=== PATIENT | male | born 1970 | race Caucasian/White ===

== ENCOUNTER 2020-04-27 12:54 | Emergency (ER) | payer OTHER ==
--- NOTE | 2020-04-27 15:38 | RAD REPORT ---
EXAM DESCRIPTION: RAD - Femur Right - 04/27/2020 3:07 pm CLINICAL HISTORY: Leg pain FINDINGS: Right hip arthroplasty. Right femoral prosthesis is in place. Sideplate and screws and wir es are noted. Comminuted fracture involves the proximal to mid right femur with displacement of fracture fragments. The femoral sideplate is in 2 pieces. Presumably this is secondary to a fracture of the plate. This s hould be correlated with prior x-ray. Also comparison with the prior x-ray would be helpful to determine if there has been a re- fracture o f the femur or if this is all a chronic finding
--- NOTE | 2020-04-27 15:40 | RAD REPORT ---
EXAM DESCRIPTION: USExtremity Venous Uni Ltd04/27/2020 3:22 pm CLINICAL HISTORY: Right leg pain and swelling. COMPARISON: None. FINDINGS: Right common femoral, superficial femoral, popliteal and right posterior tibial veins are compressible and demonstrate augmentation. Doppler demonstrates good flow. IMPRESSION: No evidence of deep venous thrombosis involving the right lower extremity.
--- NOTE | 2020-04-27 16:00 | EDPHYS ---
Physician Documentation [facility] Name: Romulo Sebastian Age: 50 yrs Sex: Male : 1970 Arrival Date: 04/27/2020 Time: 12:56 Bed 14 Private MD: ED Physician Javier Holly HPI: 04/27 14:44 This 50 yrs old Male presents to ER via Wheelchair with complaints of Leg kb Pain. 14:44 The patient presents with pain, that is acute, swelling. The complaints affect the kb right quadriceps. Context: The problem was sustained at home, resulted from twisting of the extremity, the patient can partially bear weight, the patient is able to ambulate, Problem is a result from a previous injury: Yes. Onset: The symptoms/episode began/occurred 2 month(s) ago. Modifying factors: The symptoms are alleviated by nothing. the symptoms are aggravated by weight bearing. Associated signs and symptoms: Pertinent positives: swelling, Pertinent negatives calf tenderness, fever, nausea, numbness, rash, tingling, vomiting, warmth, weakness. Treatment prior to arrival includes: no previous treatment. Severity of symptoms: At their worst the symptoms were moderate, in the emergency department the symptoms are unchanged. The patient has not experienced similar symptoms in the past. The patient has not recently seen a physician. Pt reports he broke his femur in November, had surgery at that time and started getting around on it. States he twisted it 2 months ago and has had some pain and swelling since then that has gotten worse. Historical: - Allergies: 13:20 GABAPENTIN; ca1 - PMHx: 13:20 Arthritis; Asthma; chronic back and hip pain; ca1 - PSHx: 13:20 right hip; Carpal Tunnel Repair; nerve pain; ca1 - Immunization history:: Adult Immunizations up to date. - Social history:: Smoking status: Patient denies any tobacco usage or history of. ROS: 14:43 Constitutional: Negative for fever, chills, and weight loss, Cardiovascular: Negative kb for chest pain, palpitations, and edema, Respiratory: Negative for shortness of breath, cough, wheezing, and pleuritic chest pain, Abdomen/GI: Negative for abdominal pain, nausea, vomiting, diarrhea, and constipation, Back: Negative for injury and pain, Skin: Negative for injury, rash, and discoloration, Neuro: Negative for headache, weakness, numbness, tingling, and seizure. 14:43 MS/extremity: Positive for pain, swelling, of the right quadriceps. Exam: 14:43 Constitutional: This is a well developed, well nourished patient who is awake, alert, kb and in no acute distress. Head/Face: Normocephalic, atraumatic. Chest/axilla: Normal chest wall appearance and motion. Nontender with no deformity. No lesions are appreciated. Cardiovascular: Regular rate and rhythm with a normal S1 and S2. No gallops, murmurs, or rubs. Normal PMI, no JVD. No pulse deficits. Respiratory: Lungs have equal breath sounds bilaterally, clear to auscultation and percussion. No rales, rhonchi or wheezes noted. No increased work of breathing, no retractions or nasal flaring. Abdomen/GI: Soft, non-tender, with normal bowel sounds. No distension or tympany. No guarding or rebound. No evidence of tenderness throughout. Skin: Warm, dry with normal turgor. Normal color with no rashes, no lesions, and no evidence of cellulitis. Neuro: Awake and alert, GCS 15, oriented to person, place, time, and situation. Cranial nerves II-XII grossly intact. Motor strength 5/5 in all extremities. Sensory grossly intact. Cerebellar exam normal. Normal gait. 14:43 Musculoskeletal/extremity: Extremities: grossly normal except: noted in the right quadriceps: pain, swelling, ROM: intact in all extremities, Circulation is intact in all extremities. Sensation intact. Weight bearing: can bear weight with assistance only. Vital Signs: 13:15 BP 131 / 84; Pulse 90; Resp 15 S; Temp 97.6(TE); Pulse Ox 99% on R/A; Weight 106.59 kg; ca1 Height 5 ft. 9 in. (175.26 cm) (R); 16:20 BP 125 / 79; Pulse 75; Resp 17; Temp 97.8; Pulse Ox 99% ; bp 13:15 Body Mass Index 34.70 (106.59 kg, 175.26 cm) ca1 MDM: 14:13 Patient medically screened. kb 14:44 Data reviewed: vital signs, nurses notes. Data interpreted: Pulse oximetry: on room air kb is 99 %. Interpretation: normal. 14:47 Counseling: I had a detailed discussion with the patient and/or guardian regarding: the kb historical points, exam findings, and any diagnostic results supporting the discharge/admit diagnosis, radiology results, the need for outpatient follow up, a orthopedic surgeon, to return to the emergency department if symptoms worsen or persist or if there are any questions or concerns that arise at home. 04/27 14:29 Order name: Femur Right XRAY; Complete Time: 15:54 kb 04/27 14:29 Order name: US Extremity Venous Unilateral Ltd; Complete Time: 15:54 kb Administered Medications: 16:00 Drug: [place] [address] 10 mg-325 mg 1 tabs Route: PO; bp 16:17 Follow up: Response: Medication administered at discharge. bp Disposition: 19:07 Co-signature as Attending Physician, Javier Holly MD. rn Disposition: 04/27/20 15:59 Discharged to Home. Impression: Pain in right leg - fractured plate. - Condition is Stable. - Discharge Instructions: Musculoskeletal Pain. - Prescriptions for Tylenol- Codeine #3 300-30 mg Oral Tablet - take 1 tablet by ORAL route every 6 hours As needed; 15 tablet. - Medication Reconciliation Form, Thank You Letter, Antibiotic Education, Prescription Opioid Use form. - Follow up: Emergency Department; When: As needed; Reason: Worsening of condition. Follow up: Private Physician; When: 2 - 3 days; Reason: Recheck today's complaints, Continuance of care, Re-evaluation by your physician. Signatures: Dispatcher [employer] EDTX Ligia Hess, PET CARE ASSISTANT-C PET CARE ASSISTANT-Ckb Javier Holly MD MD rn Peltier, Brian, RN RN bp Acob, Cheryl, RN RN ca1 Corrections: (The following items were deleted from the chart) 16:24 15:59 04/27/2020 15:59 Discharged to Home. Impression: Pain in right leg - fractured bp plate. Condition is Stable. Forms are Medication Reconciliation Form, Thank You Letter, Antibiotic Education, Prescription Opioid Use. Follow up: Emergency Department; When: As needed; Reason: Worsening of condition. Follow up: Private Physician; When: 2 - 3 days; Reason: Recheck today's complaints, Continuance of care, Re-evaluation by your physician. kb
--- NOTE | 2020-04-27 16:00 | ER ---
Nurse's Notes [facility] Name: Romulo Sebastian Age: 50 yrs Sex: Male : 1970 Arrival Date: 04/27/2020 Time: 12:56 Bed 14 Private MD: Diagnosis: Pain in right leg-fractured plate Presentation: 04/27 13:15 Chief complaint: Patient states: I broke my R Femur on October, I had surgery and had ca1 this pain at the back of my R knee. Right now, the pain is on my side and front of my R thigh, it feels a little swollen and the pain has gotten worse. And my R arm is tingling when I turn my neck a certain way. Coronavirus screen: Proceed with normal triage. Patient denies a cough. Patient denies shortness of breath or difficulty breathing. Patient denies measured and/or subjective temperature greater than 100.4F prior to today's visit. Patient denies travel on a cruise ship or to a country the [facility] currently lists as an affected area. Patient denies contact with known and/or suspected case of COVID-19. Ebola Screen: Patient negative for fever greater than or equal to 101.5 degrees Fahrenheit, and additional compatible Ebola Virus Disease symptoms Patient denies exposure to infectious person. Patient denies travel to an Ebola-affected area in the 21 days before illness onset. No symptoms or risks identified at this time. Initial Sepsis Screen: Does the patient meet any 2 criteria? No. Patient's initial sepsis screen is negative. Does the patient have a suspected source of infection? No. Patient's initial sepsis screen is negative. Risk Assessment: Do you want to hurt yourself or someone else? Patient reports no desire to harm self or others. Onset of symptoms was April 27, 2020. 13:15 Method Of Arrival: Wheelchair ca1 13:15 Acuity: IVORY 4 ca1 Triage Assessment: 13:30 General: Appears in no apparent distress. uncomfortable, Behavior is calm, cooperative, bp appropriate for age. Pain: Complains of pain in right leg. EENT: No deficits noted. Neuro: No deficits noted. Cardiovascular: No deficits noted. Respiratory: No deficits noted. GI: No signs and/or symptoms were reported involving the gastrointestinal system. : No signs and/or symptoms were reported regarding the genitourinary system. Derm: No deficits noted. Musculoskeletal: No deficits noted. Historical: - Allergies: 13:20 GABAPENTIN; ca1 - PMHx: 13:20 Arthritis; Asthma; chronic back and hip pain; ca1 - PSHx: 13:20 right hip; Carpal Tunnel Repair; nerve pain; ca1 - Immunization history:: Adult Immunizations up to date. - Social history:: Smoking status: Patient denies any tobacco usage or history of. Screenin:16 Abuse screen: Denies threats or abuse. Denies injuries from another. Nutritional bp screening: No deficits noted. Tuberculosis screening: No symptoms or risk factors identified. Fall Risk None identified. Assessment: 13:30 General: SEE TRIAGE NOTE. bp 15:00 Reassessment: U/S AT B/S. bp 16:17 Reassessment: PT D/C HOME AMBULATORY WITH FAMILY, DX WITH PAIN IN R LEG, FRACTURED bp PLATE. Vital Signs: 13:15 BP 131 / 84; Pulse 90; Resp 15 S; Temp 97.6(TE); Pulse Ox 99% on R/A; Weight 106.59 kg; ca1 Height 5 ft. 9 in. (175.26 cm) (R); 16:20 BP 125 / 79; Pulse 75; Resp 17; Temp 97.8; Pulse Ox 99% ; bp 13:15 Body Mass Index 34.70 (106.59 kg, 175.26 cm) ca1 ED Course: 12:56 Patient arrived in ED. ag5 13:19 Triage completed. ca1 13:20 Arm band placed on right wrist. ca1 14:11 Ligia Hess FNP-C is PHCP. kb 14:11 Javier Holly MD is Attending Physician. kb 14:12 Hill Novoa, CAT is Primary Nurse. bp 14:16 Patient has correct armband on for positive identification. Bed in low position. Call bp light in reach. Side rails up X2. 15:07 Femur Right XRAY In Process Unspecified. EDMS 15:23 US Extremity Venous Unilateral Ltd In Process Unspecified. EDMS 16:20 No provider procedures requiring assistance completed. Patient did not have IV access bp during this emergency room visit. Administered Medications: 16:00 Drug: [place] 10 mg-325 mg 1 tabs Route: PO; bp 16:17 Follow up: Response: Medication administered at discharge. bp Outcome: 15:59 Discharge ordered by . danny 16:22 Discharged to home ambulatory, with family. bp 16:22 Condition: stable 16:22 Discharge instructions given to patient, Instructed on discharge instructions, follow up and referral plans. medication usage, Demonstrated understanding of instructions, follow-up care, medications, Prescriptions given X 1. 16:24 Patient left the ED. bp Signatures: Dispatcher [employer] EDCO Ligia Hess, Hill Cuellar RN RN Izabella Rivers RN RN [facility] Fariha Smith 5
[2020-04-27] MEDS ORDERED: HYDROCODONE/APAP 10/325 TAB ONE (16:15)
[2020-04-27 16:29] VITALS: O2SAT 99
[2020-04-27 16:30] VITALS: BP 125/79; TEMP 97.8
== END 2020-04-27 16:24 | disposition home or self-care (01) ==
LOC: ER 12:54
DX: M79.651 Pain in right thigh (principal); Z88.8 Allergy status to other drugs, medicaments and biological substances
CPT/HCPCS: 93971; 99283

== ENCOUNTER 2023-08-11 13:09 | Emergency (ER) | payer OTHER ==
--- OUTSIDE RECORDS SUMMARY | 2023-08-11 13:11 | XMS REPORT | Continuity of Care Document ---
:1970 Author Organization [facility] t Address [address] [place] [address] [place] [id number] Care Team Providers Name Role Phone Remedios RAMIRE[facility] Phys[facility] Doctor Unassigned, [place] Attending Clinician Unavailable Jason Coreas DO Attending Clinician Pio Zelaya MD Attending Clinician Carlitos Goodwin MD Attending Clinician LISA WOO Attending Clinician Unavailable CONCEPCION FOWLER Admitting Clinician Unavailable Payers Payer Name Policy Type Policy Number Effective Date Expiration Date S ource Problems Condition Condition Condition Status Onset Resolution Last Treating Co mments Source Name Details Category Date Date Treatment Clinician Date Obesity Obesity Disease Active 2018-11 Univers (BMI (BMI 2-15 ity of 30-39.9) 30-39.9) 00:00: [place] [address] Medical Branch Femur Femur Disease Active 2018-11 Univers fracture, fracture, 2-14 ity of right right 00:00: [place] [address] Medical Branch Scalp Scalp Disease Active 2018-11 Univers hematoma hematoma 2-14 ity of 00:00: [place] [address] Medical Branch Allergies, Adverse Reactions, Alerts Allergy Allergy Status Severity Reaction(s) Onset Inactive Treating Comm ents Source Name Type Date Date Clinician Gabapent Propensi Active Other - See 2018-11 Blurred Univers in ty to comments 2-14 vision ity of adverse 00:00: [place] [facility] 00 Medical s Branch GABAPENT DRUG Active Other-Cmnt 2018-11 Univ ers IN INGREDI 2-14 ity of 00:00: [place] 00 Medical Branch Social History Social Habit Start Date Stop Date Quantity Comments Source History SDOK 2019-10-19 2019-10-19 5 University o [facility] Financial 00:00:00 00:00:00 Medical Branch History SDOH Food 2019-10-19 2019-10-19 1 Univers [facility] [place] Worry 00:00:00 00:00:00 Medical Branch History [facility] Food 2019-10-19 2019-10-19 1 Univers [facility] Scarcity 00:00:00 00:00:00 Medical Branch History SDOK 2019-10-19 2019-10-19 2 University o [facility] Transport Med 00:00:00 00:00:00 Medical Bra nch History [facility] 2019-10-19 2019-10-19 2 [facility] Transport Non-Med 00:00:00 00:00:00 Medical Branch Tobacco use and 2019-10-18 2019-10-18 Never used [facility] exposure 00:00:00 00:00:00 Medical Branch Education 2019-10-18 2019-10-18 15 [facility] 00:00:00 00:00:00 Medical Branch Sex Ass[birth year] [facility] 00:00:00 00:00:00 Medical Branch Smoking Status Start Date Stop Date Source Never smoker [facility] Medical Branch Medications Ordered Filled Start Stop Current Ordering Indication Dosage Frequency Signature Comments Components Source Medication Medication Date Date Medication? Clinician (SIG) Name Name No known No Univers medications - ity of 09:08: [place] 42 Medical Branch aspirin 2020-0 2020- No [id number] 325mg Take 1 U nivers E.C. 325 mg 1-10 -25 tablet by it y of EC tablet 00:00: 05:59 mouth [place] 00 :00 daily for Medical 14 days. Branch aspirin 2020-0 2020- No [id number] 325mg Take 1 U nivers E.C. 325 mg 1-10 -25 tablet by it y of EC tablet 00:00: 05:59 mouth [place] 00 :00 daily for Medical 14 days. Branch aspirin 2019-0 2020- No [id number] 325mg Take 1 U nivers E.C. 325 mg 1-10 -25 tablet by it y of EC tablet 00:00: 05:59 mouth [place] 00 :00 daily for Medical 14 days. Branch aspirin 2019- No [id number] 325mg Take 1 U nivers E.C. 325 mg 11-14 tablet by it y of EC tablet 00:00: 05:59 mouth [place] 00 :00 daily for Medical 14 days. Branch No known No Univers medications [facility] No known No Univers medications [facility] Vital Signs Vital Name Observation Time Observation Value Comments Source Body height 2019-11-25 15:08:00 175.3 cm [facility] Body weight 2019-11-25 15:08:00 112.991 kg [facility] BMI 2019-11-25 15:08:00 36.79 kg/m2 [facility] Procedures Procedure Date / Time Performing Clinician Source Performed AUTHORIZATION FOR 2022-04-11 05:01:00 Doctor Janie, No [facility] RELEASE OF PHI Name [facility] XR FEMUR 2 VW RIGHT 2019-11-25 15:18:15 Carlitos Goodwin [facility] Encounters Start End Encounter Admission Attending Care Care Encounter Source Date/Time Date/Time Type Type Clinicians Facility Department ID 2022-04-11 2022-04-11 Orders Doctor SANDRA [id number] Univers 00:00:00 00:00:00 Only Unassigned, PHILIPPE [id number] ity of [place] [facility] [id number] Cheng as [phone] [facility] 009 Branch 2021-01-20 2021-01-20 Patient JOHANN Coreas [id number] Univers 00:00:00 00:00:00 Outreach Jason PRIMARY [id number] i ty of [facility] [id number] [id number] Me dical 388 Branch 2020-05-28 2020-05-28 Telephone ZelayaJOHANN alcala [id number] Univers 00:00:00 00:00:00 Pio A HEALTH [id number] [id number] [place] [facility] [id number] [facility] Primary & 198 Branch Specialty Care 2019-11-25 2019-11-25 Hospital Zelaya, [facility] [id number] Univers 08:45:00 23:59:00 Encounter Pio Soni HEALTH [id number] [facility] [id number] [facility] [id number] [facility] Primary & 809 Branch Specialty Care 2019-11-25 2019-11-25 Office [facility] [id number] Univers 09:04:15 09:19:15 Visit Pio Soni HEALTH [id number] it y [place] [id number] [facility] [id number] [facility] Primary & 198 Branch Specialty Care 2019-11-23 2019-11-23 Abstract Christa [facility] [id number] Univers 00:00:00 00:00:00 Maxim HEALTH [id number] it y [facility] [place] [id number] [facility] [id number] [facility] Primary & 198 Branch Specialty Care 2019-10-18 2019-10-18 Emergency X WOO [facility] ERT [id number] Univers 14:10:48 16:26:00 LISA [facility] Results Test Test Test Results Result Source Description Time Comments Comments XR FEMUR 2 VW 2019-11- Stable hip arthroplasty [facility] change with healing [facility] 15:42:18 periprosthetic proximal B ranch femoralfracture. EXAM: XR FEMUR 2 VW RIGHT HISTORY: fx COMPARISON: October 2019 FINDINGS: Imaging of the right femur demonstrates interval skin staple removal at thelevel of the right hip arthroplasty changes with residual soft tissueswelling. Tension cable and plate fixation hardware secure a healingperiprosthetic fracture at the femoral prosthesis with unchanged alignmentand mild progressive partially bridging callus. Heterotopic ossificationremains along the right hip joint capsule. [facility], Radiant Results Inft User - 11/25/2019 9:43 AM CSTEXAM:XR FEMUR 2 VW RIGHTHISTORY:fx COMPARISON:October 2019FINDINGS: Imaging of the right femur demonstrates interval skin staple removal at thelevel of the right hip arthroplasty changes with residual soft tissueswelling. Tension cable and plate fixation hardware secure a healingperiprosthetic fracture at the femoral prosthesis with unchanged alignmentand mild progressive partially bridging callus. Heterotopic ossificationremains along the right hip joint capsule.IMPRESSIONStable hip arthroplasty change with healing periprosthetic proximal femoralfracture.
--- NOTE | 2023-08-11 13:50 | EDPHYS ---
Physician Documentation [facility] Name: Romulo Sebastian Age: 53 yrs Sex: Male : 1970 Arrival Date: 08/11/2023 Time: 13:09 Bed 7 Private MD: ED Physician Chinedu France HPI: 08/11 14:11 This 53 yrs old Black Male presents to ER via Ambulatory with complaints of Arm Pain, rt Neck Pain, <24hrs Old. 14:11 Patient presents to the ED with about 1 month of a left-sided neck pain with tingling rt sensation down his arm. Patient does report a prior injury to the area. The patient states that the symptoms have persisted, he only has modest relief with methocarbamol, ibuprofen, Tylenol. He has not yet been able to get in with his primary care for further work-up of this. Denies other acute complaints including trauma. Symptoms are mild in severity, aching in nature, no other aggravating or elevating factors.. Historical: - Allergies: 13:19 GABAPENTIN; mb9 - PMHx: 13:19 Arthritis; Asthma; chronic back and hip pain; mb9 - Immunization history:: Adult Immunizations up to date. - Family history:: not pertinent. ROS: 14:11 Constitutional: Negative for fever, chills, and weight loss, Cardiovascular: Negative rt for chest pain, palpitations, and edema, Respiratory: Negative for shortness of breath, cough, wheezing, and pleuritic chest pain, Abdomen/GI: Negative for abdominal pain, nausea, vomiting, diarrhea, and constipation, Skin: Negative for injury, rash, and discoloration, Psych: Negative for depression, anxiety, suicide ideation, homicidal ideation, and hallucinations, 14:11 Neck: Positive for rash, Negative for injury or acute deformity, 14:11 MS/extremity: Positive for pain, paresthesias, Exam: 14:11 Constitutional: This is a well developed, well nourished patient who is awake, alert, rt and in no acute distress. Chest/axilla: Normal chest wall appearance and motion. Nontender with no deformity. No lesions are appreciated. Cardiovascular: Regular rate and rhythm with a normal S1 and S2. No gallops, murmurs, or rubs. Normal PMI, no JVD. No pulse deficits. Respiratory: Lungs have equal breath sounds bilaterally, clear to auscultation and percussion. No rales, rhonchi or wheezes noted. No increased work of breathing, no retractions or nasal flaring. Abdomen/GI: Soft, non-tender, with normal bowel sounds. No distension or tympany. No guarding or rebound. No evidence of tenderness throughout. Skin: Warm, dry with normal turgor. Normal color with no rashes, no lesions, and no evidence of cellulitis. 14:11 Neck: Tenderness to left superior trapezius muscle, no midline tenderness, no step-offs, 14:11 Neuro: Good bellhop captain strength on bilateral upper extremities, no sensory deficits., Vital Signs: 13:23 BP 147 / 103; Pulse 78; Resp 18; Temp 98.3; Pulse Ox 97% on R/A; Weight 99.79 kg; hb Height 5 ft. 9 in. ; Pain 9/10; 13:49 BP 136 / 103; Pulse 74; Resp 18; Pulse Ox 100% on R/A; mb9 13:23 Body Mass Index 32.49 (99.79 kg, 175.26 cm) hb 13:23 Pain Scale: Adult hb MDM: 13:25 Patient medically screened. rt 14:11 Differential diagnosis: Radicular pain, muscle spasm, disc disease. Data reviewed: rt vital signs, nurses notes. I considered the following discharge prescriptions or medication management in the emergency department Medications were administered in the Emergency Department. See MAR. Test considered but Not performed: CT: No trauma, no focal neurodeficits, MRI, CT scan not indicated emergently. Pain has been present for over 1 month.. Counseling: I had a detailed discussion with the patient and/or guardian regarding the historical points, exam findings, and any diagnostic results supporting the discharge/admit diagnosis, the need for outpatient follow up, to return to the emergency department if symptoms worsen or persist or if there are any questions or concerns that arise at home. Administered Medications: 13:47 Drug: Ketorolac IM 15 mg IM once Route: IM; Site: left deltoid; mb9 13:59 Follow up: Response: No adverse reaction mb9 Disposition Summary: 08/11/23 13:50 Discharge Ordered Notes: Location: Home rt Problem: an ongoing problem rt Symptoms: are unchanged rt Condition: Stable rt Diagnosis - Neck pain with radiculopathy rt Followup: rt - With: Private Physician - When: 2 - 3 days - Reason: Discharge Instructions: - Discharge Summary Sheet rt - Cervical Radiculopathy rt Forms: - Medication Reconciliation Form rt - Thank You Letter rt - Antibiotic Education rt - Prescription Opioid Use rt - Patient Portal Instructions rt - Leadership Thank You Letter rt Prescriptions: - Lidoderm 5 % Topical adhesive patch, medicated - apply 1 patch TOPICAL route once leave on most painful area for up to 12 hrs; rt 10 patch; Refills: 0, Product Selection Permitted - acetaminophen-codeine 300-30 mg Oral tablet - take 1 tablet ORAL route every 6 hours As needed for pain; 18 tablet; Refills: rt 0, Product Selection Permitted - Cyclobenzaprine 10 mg Oral tablet - take 1 tablet ORAL route every 8 hours As needed; 15 tablet; Refills: 0, rt Product Selection Permitted - Prednisone 20 mg Oral Tablet - take 2 tablets ORAL route once daily for 5 days; 10 tablet; Refills: 0, Product rt Selection Permitted Signatures: Vani Up RN RN mb9 Chinedu France MD MD rt
--- NOTE | 2023-08-11 13:50 | ER ---
Nurse's Notes [facility] Name: Romulo Sebastian Age: 53 yrs Sex: Male : 1970 Arrival Date: 08/11/2023 Time: 13:09 Bed 7 Private MD: Diagnosis: Neck pain with radiculopathy Presentation: 08/11 13:22 Initial Sepsis Screen: Does the patient meet any 2 criteria?. mb9 13:23 Chief complaint: Left sided neck pain that radiates to left arm and hand x 3 weeks. hb Denies new injury. Pain unrelieved by Tylenol, Motrin, and Robaxin. Coronavirus screen: At this time, the client does not indicate any symptoms associated with coronavirus-19. Ebola Screen: No symptoms or risks identified at this time. Initial Sepsis Screen: Does the patient meet any 2 criteria?. 13:23 Method Of Arrival: Ambulatory hb 13:26 Risk Assessment: Do you want to hurt yourself or someone else? Patient reports no hb desire to harm self or others. Onset of symptoms was July 2023. 13:26 Acuity: IVORY 4 hb Historical: - Allergies: 13:19 GABAPENTIN; mb9 - PMHx: 13:19 Arthritis; Asthma; chronic back and hip pain; mb9 - Immunization history:: Adult Immunizations up to date. - Family history:: not pertinent. Screenin:19 [facility] ED Fall Risk Assessment (Adult) History of falling in the last 3 months, mb9 including since admission No falls in past 3 months (0 pts) Confusion or Disorientation No (0 pts) Intoxicated or Sedated No (0 pts) Impaired Gait No (0 pts) Mobility Assist Device Used No (0 pt) Altered Elimination No (0 pt) Score/Fall Risk Level 0 - 2 = Low Risk Oriented to surroundings, Maintained a safe environment, Educated pt \T\ family on fall prevention, incl call for assistance when getting out of bed. Abuse screen: Denies threats or abuse. Nutritional screening: No deficits noted. Tuberculosis screening: No symptoms or risk factors identified. Assessment: 13:48 General: Appears uncomfortable, Behavior is calm, cooperative. Pain: Complains of pain mb9 in neck Pain radiates to left lateral neck Pain currently is 10 out of 10 on a pain scale. Quality of pain is described as throbbing, Pain began gradually, Is intermittent, chronic, Aggravated by increased activity, repositioning. Neuro: Keller Agitation-Sedation Scale (RASS): 0 - Alert and Calm Level of Consciousness is awake, alert, obeys commands, Oriented to person, place, time, situation, Appropriate for age. Cardiovascular: Patient's skin is warm and dry. Respiratory: Airway is patent Respiratory effort is even, unlabored, Respiratory pattern is regular, symmetrical. GI: No signs and/or symptoms were reported involving the gastrointestinal system. : No signs and/or symptoms were reported regarding the genitourinary system. EENT: No signs and/or symptoms were reported regarding the EENT system. Derm: Skin is pink, warm \T\ dry. Musculoskeletal: Range of motion: intact in all extremities. Vital Signs: 13:23 BP 147 / 103; Pulse 78; Resp 18; Temp 98.3; Pulse Ox 97% on R/A; Weight 99.79 kg; hb Height 5 ft. 9 in. ; Pain 9/10; 13:49 BP 136 / 103; Pulse 74; Resp 18; Pulse Ox 100% on R/A; mb9 13:23 Body Mass Index 32.49 (99.79 kg, 175.26 cm) hb 13:23 Pain Scale: Adult hb ED Course: 13:11 Patient arrived in ED. rg4 13:14 Chinedu France MD is Attending Physician. rt 13:18 Arm band placed on. mb9 13:19 Placed in gown. Bed in low position. Call light in reach. Side rails up X 1. Client mb9 placed on continuous cardiac and pulse oximetry monitoring. NIBP monitoring applied. monitoring analyst on. 13:28 Triage completed. hb 13:36 Marino Ladd, CAT is Primary Nurse. ph 13:49 No provider procedures requiring assistance completed. Patient did not have IV access mb9 during this emergency room visit. Administered Medications: 13:47 Drug: Ketorolac IM 15 mg IM once Route: IM; Site: left deltoid; mb9 13:59 Follow up: Response: No adverse reaction mb9 Medication: 13:19 VIS not applicable for this client. mb9 Outcome: 13:50 Discharge ordered by . rt 14:03 Discharged to home ambulatory, mb9 14:03 Condition: stable 14:03 Discharge instructions given to patient, Instructed on discharge instructions, follow up and referral plans. Demonstrated understanding of instructions, follow-up care, medications, Prescriptions given X 4, 14:04 Patient left the ED. mb9 Signatures: Isabel Bui RN RN Fransisca Garzon RN RN hb Garcia, Rubi rg4 Vani Up RN RN mb9 Chinedu France MD MD rt
[2023-08-11] MEDS ORDERED: KETOROLAC 30 MG/ML INJ ONE (13:58)
[2023-08-11 14:49] VITALS: TEMP 98.3
[2023-08-11 14:50] VITALS: BP 136/103; O2SAT 100
== END 2023-08-11 14:04 | disposition home or self-care (01) ==
LOC: ER 13:09
DX: M54.2 Cervicalgia (principal); M54.12 Radiculopathy, cervical region; Z88.8 Allergy status to other drugs, medicaments and biological substances
CPT/HCPCS: 96372; 99284

== ENCOUNTER → 2023-12-23 | Emergency (ER) | payer OTHER ==
--- OUTSIDE RECORDS SUMMARY | 2023-12-23 13:57 | XMS REPORT | Continuity of Care Document ---
Author Name Unknown Address [address] [place] [address] [facility] thconnect Address [address] [place] [address] Care Team Providers Care Stator Tester Name Role Phone Cyndee Whittaker MD Primary Care Physician Doctor Unassigned, [place] Attending Clinician U Jason Wallace DO Attending Clinician Pio Zelaya MD Attending Clinician [phone] Christa RAMIREZ, [place] Attending Clinician [phone] LISA WOO Attending Clinician Unavailable [facility] F[facility]LER Admitting Clinician Unavailable Payers Payer Name Policy Type Policy Number Effective Date Expirati on Date Source Problems Condition Name Condition Details Condition Category Status Onset Date Resolution Date Last Treatment Date Treating Clinician Comments Source Obesity (BMI 30-39.9) Obesity (BMI 30-39.9) Disease Active 2018-11 00:00: 00 [facility] Femur fracture, right Femur fracture, right Disease Active 2018-11 00:00: 00 [facility] Scalp hematoma Scalp hematoma Disease Active 2018-11 00:00: 00 [facility] Allergies, Adverse Reactions, Alerts Allergy Name Allergy Type Status Severity Reaction(s) Onset Date Inactive Date Treating Clinician Comments Source Gabapent in Propensi ty to adverse reaction s Active Other - See comments 2018-11 00:00: 00 Blurred vision [facility] GABAPENT IN DRUG INGREDI Active Other-Cmnt 2018-11 00:00: 00 [facility] Social History Social Habit Start Date Stop Date Quantity Comments Source History SDOH Financial 2019-10-19 00:00:00 2019-10-19 00:00:00 5 [facility] History SDOH Food Worry 2019-10-19 00:00:00 2019-10-19 00:00:00 1 [facility] History SDOH Food Scarcity 2019-10-19 00:00:00 2019-10-19 00:00:00 1 [facility] History SDOH Transport Med 2019-10-19 00:00:00 2019-10-19 00:00:00 2 [facility] History SDOH Transport Non-Med 2019-10-19 00:00:00 2019-10-19 00:00:00 2 [facility] Tobacco use and exposure 2019-10-18 00:00:00 2019-10-18 00:00:00 Never used [facility] Education 2019-10-18 00:00:00 2019-10-18 00:00:00 15 [facility] Sex Ass[birth year] At 1970 00:00:00 1970 00:00:00 [facility] Smoking Status Start Date Stop Date Source Never smoker [facility] Medications Ordered Medication Name Filled Medication Name Start Date Stop Date Current Medication? Ordering Clinician Indication Dosage Frequency Signature (SIG) Comments Components Source No known medications 11-25 09:08: 42 No [facility] aspirin E.C. 325 mg EC tablet 11-14 00:00: 00 11-29 05:59 :00 No [id number] 325mg Take 1 tablet by mouth daily for 14 days. [facility] aspirin E.C. 325 mg EC tablet 11-14 00:00: 00 11-29 05:59 :00 No [id number] 325mg Take 1 tablet by mouth daily for 14 days. [facility] aspirin E.C. 325 mg EC tablet 11-14 00:00: 00 11-29 05:59 :00 No [id number] 325mg Take 1 tablet by mouth daily for 14 days. [facility] aspirin E.C. 325 mg EC tablet 110 00:00: 00 11-29 05:59 :00 No [id number] 325mg Take 1 tablet by mouth daily for 14 days. [facility] No known medications No Un tomás [facility] No known medications No Un tomás [facility] Vital Signs Vital Name Observation Time Observation Value Comments S alejandro Body height 2019-11-25 15:08:00 175.3 cm [facility] Body weight 2019-11-25 15:08:00 112.991 kg [facility] BMI 2019-11-25 15:08:00 36.79 kg/m2 [facility] Procedures Procedure Date / Time Performed Performing Clinician Source AUTHORIZATION FOR RELEASE OF PHI 2022-04-11 05:01:00 Doctor Unassigned, [place] [facility] XR FEMUR 2 VW RIGHT 2019-11-25 15:18:15 Daniel Goodwin [facility] Encounters Start Date/Time End Date/Time Encounter Type Admission Type Attending Clinicians Care Facility Care Department Encounter ID Source 2022-04-11 00:00:00 2022-04-11 00:00:00 Orders Only Doctor Unassigned, [place] [facility] [id number] [facility] 2021-01-20 00:00:00 2021-01-20 00:00:00 Patient Outreach Jason Coreas [facility] [id number] [facility] 2020-05-28 00:00:00 2020-05-28 00:00:00 Telephone ZelayaPio alcala [facility] [id number] [facility] 2019-11-25 08:45:00 2019-11-25 23:59:00 Hospital Encounter ZelayaPio alcala [facility] [id number] [facility] 2019-11-25 09:04:15 2019-11-25 09:19:15 Office Visit ZelayaPio alcala [facility] [id number] [facility] 2019-11-23 00:00:00 2019-11-23 00:00:00 Abstract Carlitos Goodwin [facility] [id number] [facility] 2019-10-18 14:10:48 2019-10-18 16:26:00 Emergency X LISA WOO [facility] ERT [id number] [facility] Results Test Description Test Time Test Comments Results Result Comments Source XR FEMUR 2 VW RIGHT 15:42:18 Stable hip arthroplasty change with healing periprosthetic proximal femoralfracture. EXAM: XR FEMUR 2 VW RIGHT [...] ossificationremains along the right hip joint capsule. [facility], Radiant Results Inft User - 11/25/2019 9:43 [...] arthroplasty change with healing periprosthetic proximal femoralfracture. [facility]
--- NOTE | 2023-12-23 14:47 | RAD REPORT ---
EXAM DESCRIPTION: CT - Head Brain Wo Cont - 12/23/2023 2:39 pm CLINICAL HISTORY: HEADACHE COMPARISON: No comparisons TECHNIQUE: All CT scans are performed using dose optimization technique as appropriate and may inclu de automated exposure control or mA/KV adjustment according to patient size. FINDINGS: No intracranial hemorrhage, hydrocephalus or extra-axial fluid collection.No areas of brai n edema or evidence of midline shift. Occluded left maxillary sinus. Right maxillary sinus mucous retention cyst. Ethmoid air cell thickeni ng is present. Circumferential thickening in left sphenoid sinus. Left ostiomeatal unit is occluded. The left frontal recess is occluded. The calvarium is intact. IMPRESSION: No acute intracranial abnormality. Chronic appearing paranasal sinus disease including occluded left ostiomeatal unit.
--- NOTE | 2023-12-23 15:16 | ER ---
Nurse's Notes [facility] Name: Romulo Sebastian Age: 53 yrs Sex: Male : 1970 Arrival Date: 12/23/2023 Time: 13:54 Bed DX3 Private MD: Diagnosis: Sinus headache;Frontal sinusitis Presentation: 12/23 14:15 Chief complaint: Patient states: has had severe sinus congestion since Sunday, has a ko1 sinus headache and right eye is blurry. Coronavirus screen: congestion, headache, runny nose, Client presents with at least one sign or symptom that may indicate coronavirus-19. Standard/surgical mask placed on the client. Ebola Screen: No symptoms or risks identified at this time. Initial Sepsis Screen: Does the patient meet any 2 criteria? No. Patient's initial sepsis screen is negative. Does the patient have a suspected source of infection? No. Patient's initial sepsis screen is negative. Risk Assessment: Do you want to hurt yourself or someone else? Patient reports no desire to harm self or others. Onset of symptoms is unknown. 14:15 Method Of Arrival: Ambulatory ko1 14:15 Acuity: IVORY 3 ko1 Triage Assessment: 14:18 Headache History: Denies prior headaches. General: Appears in no apparent distress. ko1 uncomfortable, Behavior is calm, cooperative, appropriate for age. Pain: Pain currently is 6 out of 10 on a pain scale. Pain began gradually, Also complains of no other associated symptoms. Neuro: No deficits noted. Historical: - Allergies: 14:18 GABAPENTIN; ko1 - PMHx: 14:18 Arthritis; Asthma; chronic back and hip pain; ko1 - Immunization history:: Adult Immunizations up to date. - Social history:: Smoking status: Patient denies any tobacco usage or history of. - Family history:: not pertinent. Screenin:20 [facility] ED Fall Risk Assessment (Adult) Score/Fall Risk Level 0 - 2 = Low Risk hb Oriented to surroundings, Maintained a safe environment, Educated pt \T\ family on fall prevention, incl call for assistance when getting out of bed. Abuse screen: Denies threats or abuse. Denies injuries from another. Nutritional screening: No deficits noted. Tuberculosis screening: No symptoms or risk factors identified. Assessment: 15:20 General: Appears in no apparent distress. Behavior is calm, cooperative. Neuro: Level hb of Consciousness is awake, alert, obeys commands, Oriented to person, place, time, situation. Cardiovascular: Patient's skin is warm and dry. Respiratory: Respiratory effort is even, unlabored, Respiratory pattern is regular, symmetrical. Vital Signs: 14:15 BP 131 / 101; Pulse 93; Resp 16; Temp 97.8; Pulse Ox 100% ; ko1 ED Course: 13:59 Patient arrived in ED. im 14:03 Chinedu France MD is Attending Physician. rt 14:18 Triage completed. ko1 14:18 Arm band placed on right wrist. Patient placed in waiting room, Patient notified of ko1 wait time. 14:41 CT Head Brain wo Cont In Process Unspecified. EDMS 15:20 Patient has correct armband on for positive identification. Provided Education on: hb medications . 15:20 No provider procedures requiring assistance completed. hb 15:22 Patient did not have IV access during this emergency room visit. hb Administered Medications: No medications were administered Medication: 15:20 VIS not applicable for this client. hb Outcome: 15:15 Discharge ordered by . rt 15:21 Discharged to home ambulatory, hb 15:21 Condition: stable 15:21 Discharge instructions given to patient, Instructed on discharge instructions, follow up and referral plans. medication usage, Demonstrated understanding of instructions, follow-up care, medications, Prescriptions given X 1, 15:22 Patient left the ED. hb Signatures: Dispatcher [employer] EDMS Fransisca Giron RN RN hb Rosalva Del Cid RN RN ko1 Chinedu France MD MD rt Kati Casiano im
--- NOTE | 2023-12-23 15:16 | EDPHYS ---
Physician Documentation [facility] Name: Romulo Sebastian Age: 53 yrs Sex: Male : 1970 Arrival Date: 12/23/2023 Time: 13:54 Bed DX3 Private MD: ED Physician Chinedu France HPI: 12/23 14:51 This 53 yrs old Black Male presents to ER via Ambulatory with complaints of Headache, rt Blurred Vision - right eye. 14:51 Patient has had nasal congestion for 5 days. Patient stated that he developed a rt headache today and had a blurred vision. He patient states that blurred vision in the right eye improved after using clear eyedrops. States that he still has a headache, congestion. Denies other acute complaints, symptoms are moderate in severity, aching nature, nonradiating, no other aggravating or alleviating factors.. Historical: - Allergies: 14:18 GABAPENTIN; ko1 - PMHx: 14:18 Arthritis; Asthma; chronic back and hip pain; ko1 - Immunization history:: Adult Immunizations up to date. - Social history:: Smoking status: Patient denies any tobacco usage or history of. - Family history:: not pertinent. ROS: 14:51 Constitutional: Negative for fever, chills, and weight loss, Cardiovascular: Negative rt for chest pain, palpitations, and edema, Respiratory: Negative for shortness of breath, cough, wheezing, and pleuritic chest pain, Abdomen/GI: Negative for abdominal pain, nausea, vomiting, diarrhea, and constipation, Skin: Negative for injury, rash, and discoloration, Psych: Negative for depression, anxiety, suicide ideation, homicidal ideation, and hallucinations, 14:51 ENT: Positive for rhinorrhea, sinus congestion, 14:51 Neuro: Positive for headache, Negative for altered mental status, Exam: 14:51 Constitutional: This is a well developed, well nourished patient who is awake, alert, rt and in no acute distress. ENT: Nares patent. No nasal discharge, no septal abnormalities noted. Tympanic membranes are normal and external auditory canals are clear. Oropharynx with no redness, swelling, or masses, exudates, or evidence of obstruction, uvula midline. Mucous membranes moist. Chest/axilla: Normal chest wall appearance and motion. Nontender with no deformity. No lesions are appreciated. Cardiovascular: Regular rate and rhythm with a normal S1 and S2. No gallops, murmurs, or rubs. Normal PMI, no JVD. No pulse deficits. Respiratory: Lungs have equal breath sounds bilaterally, clear to auscultation and percussion. No rales, rhonchi or wheezes noted. No increased work of breathing, no retractions or nasal flaring. Abdomen/GI: Soft, non-tender, with normal bowel sounds. No distension or tympany. No guarding or rebound. No evidence of tenderness throughout. 14:51 Head/face: Sinus tenderness, that is mild, Vital Signs: 14:15 BP 131 / 101; Pulse 93; Resp 16; Temp 97.8; Pulse Ox 100% ; ko1 MDM: 14:26 Patient medically screened. rt 15:18 Differential diagnosis: Sinus headache, intracranial hemorrhage, migraine headache. rt Data reviewed: vital signs, nurses notes, radiologic studies. Test considered but Not performed: Labs: Vital signs stable, labs not indicated. Counseling: I had a detailed discussion with the patient and/or guardian regarding the historical points, exam findings, and any diagnostic results supporting the discharge/admit diagnosis, radiology results, the need for outpatient follow up, to return to the emergency department if symptoms worsen or persist or if there are any questions or concerns that arise at home. Response to treatment: the patient's symptoms have mildly improved after treatment. 12/23 14:26 Order name: CT Head Brain wo Cont; Complete Time: 14:50 rt Administered Medications: No medications were administered Disposition Summary: 12/23/23 15:15 Discharge Ordered Notes: Location: Home rt Problem: new rt Symptoms: have improved rt Condition: Stable rt Diagnosis - Sinus headache rt - Frontal sinusitis rt Followup: rt - With: Private Physician - When: 2 - 3 days - Reason: Discharge Instructions: - Discharge Summary Sheet rt - General Headache Without Cause rt - Sinusitis, Adult rt Forms: - Medication Reconciliation Form rt - Thank You Letter rt - Antibiotic Education rt - Prescription Opioid Use rt - Patient Portal Instructions rt - Leadership Thank You Letter rt Prescriptions: - Augmentin 875-125 mg Oral Tablet - take 1 tablet ORAL route every 12 hours for 10 days; 20 tablet; Refills: 0, rt Product Selection Permitted Signatures: Dispatcher [employer] Rosalva Stevens RN RN ko1 Chinedu France, MD rt
[2023-12-23 15:37] VITALS: BP 131/101; TEMP 97.8; O2SAT 100
== END ==
LOC: ER 13:54
DX: J32.1 Chronic frontal sinusitis (principal); Z88.8 Allergy status to other drugs, medicaments and biological substances
CPT/HCPCS: 70450